=== PATIENT | female | born 1980 | race Caucasian/White ===

== ENCOUNTER 2020-06-06 14:00 | Inpatient (IN) | payer BC, OTHER ==
[2020-06-06] MEDS ORDERED: hydrALAZINE 20 MG/ML VIAL SLOW IVP PRN ×2 (15:31→17:19)
[2020-06-06] MEDS ORDERED: Butorphanol Tartrate 1 MG/ML VIAL SLOW IVP SCH (15:45)
[2020-06-06] MEDS ORDERED: Promethazine HCl 25 MG/ML VIAL IM SCH (15:45)
[2020-06-06 16:15] LABS: Hemoglobin 11.1 g/dL (12.0-16.0); Platelet Count 248 thou/uL (130-400)
[2020-06-06] MEDS ORDERED: Ibuprofen 800 MG TAB PO PRN (17:19)
[2020-06-06] MEDS ORDERED: Ondansetron PF 4 MG/2 ML Vial IVP PRN (17:19)
[2020-06-06] MEDS ORDERED: Butorphanol Tartrate 1 MG/ML VIAL SLOW IVP PRN (17:19)
[2020-06-06] MEDS ORDERED: HYDROcodone/Acetaminophen 5/325 mg Tablet PO PRN (17:19)
[2020-06-06] MEDS ORDERED: Lidocaine 1% (PF) 30 ML VIAL SC PRN (17:19)
[2020-06-06] MEDS ORDERED: Lactated Ringer's 1,000 ML IV SCH ×2 (17:30)
[2020-06-06 17:36] VITALS: BMI 31.0
[2020-06-06] MEDS ORDERED: Fentanyl 4 mcg/Bup 0.1% Cadd 100 ML ONE (17:39)
[2020-06-06] MEDS ORDERED: Bupivacaine 0.5% 10 ML VIAL ONE (17:43)
[2020-06-06] MEDS ORDERED: Fentanyl 100 MCG/2 ML VIAL ONE (17:43)
[2020-06-06] MEDS ORDERED: Bupivacaine 0.5% 10 ML VIAL I-URETHRAL SCH (18:30)
[2020-06-06 19:15] LABS: HBSAg Index 0.18 S/CO (0-0.99); Hep B Surf Ag Non-Reactive S/CO (NonReactive); Syphilis Antibody Nonreactive (Nonreactive); Syphilis Antibody Index 0.02 S/CO (<1.00 Non-Reactive)
[2020-06-06] MEDS: NS / Oxytocin 40 units/1000ml 1,000 ML IV PRN ×2 (20:45→22:10)
--- NOTE | 2020-06-06 20:56 | PDOC.OPDEL ---
OB Operative/Delivery Note Delivery Dr/Surgeon: Cheng Pre-Delivery Diagnosis: active labor Procedure/Post Delivery Dx: operative vaginal delivery (VAVD for NRFHT) Weeks gestation: 39 - Additional Findings/Plan Placenta delivered: spontaneous Repaired Obstetrical Laceration: 2nd degree Estimated blood loss: 300ml Compilations/Other Findings: VAVD @ +3 for FHT 60s between contractions. Vacuum applied to head at flexion point after procedure explained to patient her her . One pull/contraction with the vacuum released and delivery completed with the next push. Post delivery plan: routine recovery
[2020-06-07] MEDS ORDERED: HYDROcodone/Acetaminophen 5/325 mg Tablet PO PRN (01:13)
[2020-06-07] MEDS ORDERED: Preparation H Ointment 28 GM TUBE PR PRN (01:13)
[2020-06-07] MEDS ORDERED: Lanolin Ointment 7 GM TUBE TOP PRN (01:13)
[2020-06-07] MEDS ORDERED: hydrALAZINE 20 MG/ML VIAL SLOW IVP PRN (01:13)
[2020-06-07] MEDS ORDERED: Ondansetron PF 4 MG/2 ML Vial IVP PRN (01:13)
[2020-06-07] MEDS ORDERED: Bisacodyl 10 MG SUPP PR PRN (01:13)
[2020-06-07] MEDS ORDERED: diphenhydrAMINE 25 MG CAP PO PRN (01:13)
[2020-06-07] MEDS ORDERED: Benzocaine-Menthol 82.5 ML CAN TOP PRN (01:13)
[2020-06-07] MEDS ORDERED: Milk Of Magnesia 30 ML UDCUP PO PRN (01:13)
[2020-06-07] MEDS ORDERED: Docusate Calcium (SURFAK) 240 MG CAP PO SCH (01:30)
[2020-06-07] MEDS ORDERED: NS / Oxytocin 40 units/1000ml 1,000 ML IV SCH (01:30)
[2020-06-07] MEDS: HYDROcodone/Acetaminophen 5/325 mg Tablet PO PRN ×3 (04:49→17:36)
[2020-06-07] MEDS: Ibuprofen 800 MG TAB PO SCH ×3 (06:04→21:31)
--- NOTE | 2020-06-07 08:18 | PDOC.PP ---
Post Progress Note Post Day #: 1 Subjective: doing well, minimal pain, strongly desires DC home tonight when baby 24hrs old PO intake tolerated: yes Flatus: yes Ambulation: yes Vital Signs (12 hours) Temp Pulse Resp BP Pulse Ox 06/07/20 08:16 97.8 F 76 20 95/57 L 98 06/07/20 04:45 98.7 F 83 18 99/54 L 06/07/20 02:05 99.0 F 86 18 100/55 L 06/07/20 00:40 99.7 F H 86 18 114/60 98 Weight Weight 181 lb - Physical Examination General: NAD Respiratory: non-labored breathing Abdominal: no distention Neurological: no gross focal deficits Psychiatric: A&Ox3, normal affect Result Diagrams: 06/06/20 16:02 Additional Labs: Post Labs Hep Bs Antigen Non-Reactive S/CO (NonReactive) 06/06/20 18:29 Blood Type A NEGATIVE 06/06/20 18:29 (1) Vaginal delivery Code(s): O80 - ENCOUNTER FOR FULL-TERM UNCOMPLICATED DELIVERY Status: Acute (2) 39 weeks gestation of Code(s): Z3A.39 - 39 WEEKS GESTATION OF Status: Acute - Assessment/Plan PPD1 doing well, possible DC late this evening if baby DC.
[2020-06-07] MEDS: Ferrous Sulfate 325 MG TAB PO SCH ×2 (08:56→17:32)
[2020-06-07] MEDS: Docusate Calcium (SURFAK) 240 MG CAP PO SCH ×2 (08:57→21:31)
[2020-06-07] MEDS: Prenatal Vitamin 1 TAB PO SCH (08:57)
[2020-06-07] MEDS ORDERED: Adacel (T-DAP) 0.5 ML SYRINGE IM ONE (09:00)
[2020-06-07 13:16] LABS: SARS-CoV-2 MS2 Positive; SARS-CoV-2 N Gene Negative; SARS-CoV-2 S Gene Negative; SARS-CoV-2 by NAA Not Detected (NotDetected); SARS-CoV-2 orf1ab Negative
[2020-06-08] MEDS: HYDROcodone/Acetaminophen 5/325 mg Tablet PO PRN ×3 (00:14→09:19)
[2020-06-08] MEDS: Ibuprofen 800 MG TAB PO SCH (05:08)
--- NOTE | 2020-06-08 08:13 | PDOC.PP ---
Post Progress Note Post Day #: 2 Subjective: doing well, ready for DC PO intake tolerated: yes Flatus: yes Ambulation: yes Weight Weight 181 lb - Physical Examination General: NAD Psychiatric: normal affect Result Diagrams: 06/06/20 16:02 Additional Labs: Post Labs Hep Bs Antigen Non-Reactive S/CO (NonReactive) 06/06/20 18:29 Blood Type A NEGATIVE 06/06/20 18:29 (1) Vaginal delivery Code(s): O80 - ENCOUNTER FOR FULL-TERM UNCOMPLICATED DELIVERY Status: Acute (2) 39 weeks gestation of Code(s): Z3A.39 - 39 WEEKS GESTATION OF Status: Acute - Assessment/Plan DC home.
[2020-06-08 08:26] VITALS: BP 125/70; TEMP 98.6
[2020-06-08] MEDS: Ferrous Sulfate 325 MG TAB PO SCH (09:18)
[2020-06-08] MEDS: Prenatal Vitamin 1 TAB PO SCH (09:18)
[2020-06-08] MEDS: Docusate Calcium (SURFAK) 240 MG CAP PO SCH (09:18)
== END 2020-06-08 11:05 | disposition home or self-care (01) | DRG 807 ==
LOC: L&D/OP 14:00 → L&D 20:58 → 3SW 06-07 00:37
PROVIDERS: ADMIT Obstetrics & Gynecology; ATTEND Obstetrics & Gynecology
PROC: 10D07Z6 Extraction of Products of Conception, Vacuum, Via Natural or Artificial Opening (ICD-10-PCS; principal; 2020-06-06)
PROC: 0KQM0ZZ Repair Perineum Muscle, Open Approach (ICD-10-PCS; 2020-06-06)
PROC: 3E0334Z Introduction of Serum, Toxoid and Vaccine into Peripheral Vein, Percutaneous Approach (ICD-10-PCS; 2020-06-07)
DX: O76 Abnormality in fetal heart rate and rhythm complicating labor and delivery (principal); Z37.0 Single live birth; Z3A.39 39 weeks gestation of pregnancy; O70.1 Second degree perineal laceration during delivery; Z20.828 Contact with and (suspected) exposure to other viral communicable diseases
CPT/HCPCS: 36415; 85014; 85018; 85049; 85461; 86780; 86850; 86870; 86900; 86901; 87340; 87635; 90384; 96372; 99285; J0595; J2001; J2550; J3010; J3490; U0003

== ENCOUNTER 2022-10-25 11:50 | Outpatient (CLI) | payer BC | END 2022-10-25 11:51 | disposition home or self-care (01) | LOC: SCSMRI 11:50 | PROVIDERS: ATTEND Specialist | DX: S83.282A Other tear of lateral meniscus, current injury, left knee, initial encounter (principal); R60.0 Localized edema ==